=== PATIENT | female | born 1995 | race Caucasian/White ===

== ENCOUNTER 2017-11-22 20:21 | Emergency (ER) | payer SELFPAY ==
--- NOTE | 2017-11-22 21:23 | ED.PDOC ---
History of Present Illness - General Chief Complaint: Problem Stated Complaint: suprapubic pain Time Seen by Provider: 11/22/17 21:19 Source: patient Exam Limitations: no limitations - History of Present Illness Initial Comments: Patient states that she has had pain in the pubic area since her period ended yesterday. She says that she is sure that it is not cramps. She is concerned there could be a tampon remaining in the vagina. She has had a yellow/bloody discharge and cloudy urine but no dysuria. Denies previous episodes. No other complaints. Timing/Duration: 24 hours Severity: moderate Improving Factors: nothing Worsening Factors: nothing Associated Symptoms: denies symptoms Allergies/Adverse Reactions: Allergies steroids Allergy (Uncoded 10/31/12 10:43) Home Medications: Ambulatory Orders NK [NK] 11/22/17 Review of Systems - Review of Systems Constitutional: States: no symptoms reported EENTM: States: no symptoms reported Respiratory: States: no symptoms reported Cardiology: States: no symptoms reported Gastrointestinal/Abdominal: States: no symptoms reported Genitourinary: States: see HPI Musculoskeletal: States: no symptoms reported Skin: States: no symptoms reported Neurological: States: no symptoms reported Endocrine: States: no symptoms reported Hematologic/Lymphatic: States: no symptoms reported Past Medical History (General) - Patient Medical History Hx Seizures: Yes Hx Stroke: No Hx Asthma: No Hx Congestive Heart Failure: No Hx Hypertension: No Hx Diabetes: No Hx MRSA: No Surgical History: no surgical history - Vaccination History Hx Tetanus, Diphtheria Vaccination: No Hx Influenza Vaccination: No Hx Pneumococcal Vaccination: Yes - Social History Hx Tobacco Use: Yes Hx Alcohol Use: No Hx Substance Use: Yes - marijuana Hx Substance Use Treatment: No Hx Depression: No - Female History Patient is a Female of Child Bearing Age (10 -59 yrs old): Yes Patient : No - Triage Comment ED Triage Comment: Burning with urination and vaginal discharge. Pain to low mid abdomen Family Medical History - Family History Father Living Status: Still Living Hx Family Hypertension: Yes Mother Living Status: Still Living Hx Cardiac Disease: Yes - [place] Physical Exam - Physical Exam General Appearance: Alert Respiratory: lungs clear, normal breath sounds Cardiovascular/Chest: normal peripheral pulses, regular rate, rhythm, no edema Gastrointestinal/Abdominal: normal bowel sounds, non tender, soft Comments: Pelvic exam with speculum showed two superficial abrasions on a nulligravida cervix. There were no visible foreign bodies. Bimanual exam showed no cervical motion tenderness and the patient's pain was not elicited by the exam. Progress - Progress Progress: 11/22/17 22:28 Possibly abrasions from traumatic insertion of a tampon or possibly unseen foreign body. Patient instructed to return tomorrow before 5 pm if pain occurs again so she can get an gynecologic ultrasound to look for foreign bodies or unusual anatomy. Tylenol #3 take home pack given for prn use. E.R. warnings given. Questions were elicited and answered. Patient voiced understanding and agreement with the plan. Departure - Departure Clinical Impression: Pelvic pain Disposition: Discharge to Home or Self Care Condition: Good Departure Forms: ED Discharge - Pt. Copy, Patient Portal Self Enrollment Diet: other - as per your regular physician Activity: increase activity as tolerated Referrals: GENE BASHIR [Primary Care Provider] - 1-2 Weeks Home Medications: Ambulatory Orders NK [NK] 11/22/17 Additional Instructions: If pain occurs again, return to the E.R. before 5 pm tomorrow or to your regular doctor in order to get a gynecologic ultrasound. Call your regular doctor first to make sure they have this available. Take pain medication only if pain recurs. Return to the E.R. immediately for temperature above 100.4 or increasing bleeding.
[2017-11-22 22:00] VITALS: BP 119/75; O2SAT 99
[2017-11-22] MEDS ORDERED: ACETAMINOPHEN W/COD #3 TAB (ER Disp) PO ONE (22:27)
[2017-11-22 22:43] VITALS: TEMP 98.4
== END 2017-11-22 22:43 | disposition home or self-care (01) ==
LOC: ER 20:21
DX: R10.2 Pelvic and perineal pain (principal); R30.0 Dysuria; N89.8 Other specified noninflammatory disorders of vagina; Z87.891 Personal history of nicotine dependence; Z88.8 Allergy status to other drugs, medicaments and biological substances

== ENCOUNTER 2018-12-20 20:23 | Emergency (ER) | payer SELFPAY ==
[2018-12-20 20:53] VITALS: TEMP 98.3; O2SAT 98
--- NOTE | 2018-12-20 21:15 | ED.PDOC ---
History of Present Illness - General Chief Complaint: Skin/Abrasion/Tear Stated Complaint: Csection site leaking Time Seen by Provider: 12/20/18 20:57 Source: patient, RN notes reviewed, Vital Signs reviewed Exam Limitations: no limitations Additional Information: Patient is a 23-year-old white female who is 3 weeks status post who presents with complaints of leakage from her wound. Patient denies any fever, chills, nausea, vomiting, diarrhea. Patient denies any other symptoms. She states that she had a gush of fluid earlier this evening and it is since stopped. She denies any purulent discharge. the leakage of fluid is at the right lateral aspect of her scar. Patient is not breast- feeding. She is bottle feeding formula. - History of Present Illness Timing/Duration: just prior to arrival Severity: mild Improving Factors: nothing Worsening Factors: nothing Associated Symptoms: itching Allergies/Adverse Reactions: Allergies steroids Allergy (Uncoded 10/31/12 10:43) Home Medications: Ambulatory Orders RX: Doxycycline Hyclate 100 mg PO BID #20 tab 12/20/18 Review of Systems - Review of Systems Constitutional: States: no symptoms reported EENTM: States: no symptoms reported Respiratory: States: no symptoms reported Cardiology: States: no symptoms reported Gastrointestinal/Abdominal: States: no symptoms reported Genitourinary: States: no symptoms reported Musculoskeletal: States: no symptoms reported Skin: States: see HPI Neurological: States: no symptoms reported Endocrine: States: no symptoms reported Hematologic/Lymphatic: States: no symptoms reported All other Systems: Reviewed and Negative Past Medical History (General) - Patient Medical History Hx Seizures: Yes Hx Stroke: No Hx Asthma: No Hx Congestive Heart Failure: No Hx Hypertension: No Hx Diabetes: No Hx Cancer: No Hx Hepatitis C: No Hx MRSA: No Surgical History: other - Vaccination History Hx Tetanus, Diphtheria Vaccination: No Hx Influenza Vaccination: No Hx Pneumococcal Vaccination: Yes - Social History Hx Tobacco Use: Yes Hx Alcohol Use: No Hx Substance Use: No - marijuana Hx Substance Use Treatment: No Hx Depression: No - Activities of Daily Living Hospice Agency (if applicable):: None - Female History Patient is a Female of Child Bearing Age (10 -59 yrs old): Yes Patient : No - Triage Comment ED Triage Comment: pt ambulated in to ED bed 5 without difficulty. pt alert and oriented x3, able to move all extremities with ease. voices that she is s/p csection 3 weeks ago, and she felt her incision site start leaking fluid tonight. pt voices no pain or fever. pt voices she has not been washing the site because she is scared of incision splitting open. incision/wound education completed at this time. pt and voice understanding. Family Medical History - Family History Father Living Status: Still Living Hx Family Hypertension: Yes Mother Living Status: Still Living Hx Cardiac Disease: Yes - [place] Physical Exam - Physical Exam General Appearance: Alert, Obese, Well Developed, Well Hydrated, Well Nourished Eyes, Ears, Nose, Throat Exam: PERRL/EOMI, normal ENT inspection, pharynx normal Neck: non-tender, full range of motion, supple Cardiovascular/Chest: normal peripheral pulses, regular rate, rhythm, no edema, no murmur Respiratory: chest non-tender, lungs clear, normal breath sounds Gastrointestinal/Abdominal: normal bowel sounds, soft, other - patient has a healing scar which has dehisced in the right lateral most aspect. There is no purulent discharge. The surgical glue which was used to close the wound is Back Exam: normal inspection Extremity: normal range of motion, non-tender, normal inspection Neurologic: court attendant II-XII nml as tested, no motor/sensory deficits, alert, normal mood/affect, oriented x 3 Skin Exam: warm/dry, other - patient has a healing scar which has dehisced in the right lateral most aspect. There is no purulent discharge. The surgical glue which was used to close the wound is Skin Problem Location: other - across lower abdomen. Skin Character: lesion, linear Lymphatic: no adenopathy Progress - Progress Progress: differential diagnosis: Abscess, wound dehiscence, cellulitis, yeast infection among others. 12/20/18 21:35 patient's labs are relatively unremarkable except for mildly elevated white count. Plan on discharge home with a prescription for doxycycline. I discussed the plan of care with the patient and her and they voice understanding and agreement. The need to consider alternative uses of control, as she is on the pill, while she is taking these antibiotics. I discussed the plan of care and she voices understanding and agreement. Daquan Dixon M.D. #[id number] - Results/Orders Results/Orders: Laboratory Results - last 24 hr 12/20/18 12/20/18 21:05 21:05 WBC 11.9 H RBC 4.12 L Hgb 11.7 L Hct 35.1 L MCV 85.1 MCH 28.4 MCHC 33.4 RDW 14.9 H Plt Count 412 H MPV 7.6 Absolute Neuts (auto) 8.20 H Absolute Lymphs (auto) 2.90 Absolute Monos (auto) 0.50 Absolute Eos (auto) 0.30 Absolute Basos (auto) 0.20 H Neutrophils % 68.6 Lymphocytes % 23.9 Monocytes % 4.0 Eosinophils % 2.2 Basophils % 1.3 Sodium 139 Potassium 3.8 Chloride 105 Carbon Dioxide 23 Anion Gap 14.8 BUN 14 Creatinine 0.75 BUN/Creatinine Ratio 18.7 Random Glucose 96 Serum Osmolality 277.9 Calcium 8.7 Departure - Departure Clinical Impression: Wound dehiscence, Cellulitis Qualifiers: Site of cellulitis: trunk Site of cellulitis of trunk: unspecified site Qualified Code(s): L03.319 - Cellulitis of trunk, unspecified Time of Disposition: 21:39 Disposition: Discharge to Home or Self Care Condition: Good Departure Forms: ED Discharge - Pt. Copy, Patient Portal Self Enrollment Instructions: DI for Wound Infection Referrals: Kentrell Murphy MD [Primary Care Provider] - 1-2 Weeks Prescriptions: RX: Doxycycline Hyclate 100 mg PO BID #20 tab Home Medications: Ambulatory Orders RX: Doxycycline Hyclate 100 mg PO BID #20 tab 12/20/18
[2018-12-20] MEDS ORDERED: DOXYCYCLINE HYCLATE CAP 100 MG CAP ONE (21:30)
[2018-12-20] MEDS ORDERED: DOXYCYCLINE HYCLATE CAP 100 MG CAP PO ONE (21:31)
[2018-12-20 21:39] VITALS: BP 162/101
== END 2018-12-20 21:45 | disposition home or self-care (01) ==
LOC: ER 20:23
DX: L03.319 Cellulitis of trunk, unspecified (principal); O90.0 Disruption of cesarean delivery wound; R56.9 Unspecified convulsions; Z87.891 Personal history of nicotine dependence; Z88.8 Allergy status to other drugs, medicaments and biological substances